=== PATIENT | female | born 1970 | race Caucasian/White ===

== ENCOUNTER 2017-07-20 01:16 | Emergency (ER) | payer BC, OTHER ==
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
== END 2017-07-20 02:44 | disposition home or self-care (01) ==
LOC: DL.ED 01:16
DX: S10.93XA Contusion of unspecified part of neck, initial encounter (principal); Z79.899 Other long term (current) drug therapy; Y04.2XXA Assault by strike against or bumped into by another person, initial encounter
CPT/HCPCS: 70490; 99284